=== PATIENT | female | born 1955 | race Caucasian/White ===

== ENCOUNTER 2018-09-15 09:38 | Outpatient (CLI) | payer OTHER, SELFPAY ==
[2018-09-15 13:15] LABS: Hemoglobin A1C 5.5 % (4.5-6.2)
[2018-09-15 13:56] LABS: ALT 26 U/L (12-78); AST 30 U/L (15-37); Albumin 3.3 g/dL (3.4-5.0); Alkaline Phosphatase 89 U/L (46-116); Anion Gap 8.1 mmol/L (3-11); BUN 12 mg/dL (7-18); Bilirubin, Total 0.4 mg/dL (0.2-1.0); CO2 26.9 mmol/L (21.0-32.0); CREATININE 0.55 mg/dL (0.55-1.02); Calcium 9.2 mg/dL (8.5-10.1); Chloride 104 mmol/L (98-107); Cholesterol 242 mg/dL (50-200); Glucose 89 mg/dL (70-100); HDL Cholesterol 119 mg/dL (40-60); LDL CHOLESTEROL 107 mg/dL (<100); Potassium 4.8 mmol/L (3.5-5.1); Sodium 139 mmol/L (136-145); TSH 2.51 uIU/mL (0.358-3.74); Total Protein 6.6 g/dL (6.4-8.2); Triglyceride 68 mg/dL (30-150)
[2018-09-15 14:14] LABS: FREE T4 1.08 ng/dL (0.76-1.46)
== END 2018-09-15 09:58 ==
PROVIDERS: PCP Emergency Medicine; Visit Provider Nurse Practitioner Family
DX: E03.9 Hypothyroidism, unspecified (principal); E78.5 Hyperlipidemia, unspecified
CPT/HCPCS: 36415; 80053; 80061; 83721; 83036; 84439; 84443

== ENCOUNTER 2018-09-17 00:26 | Outpatient (CLI) | payer OTHER, SELFPAY ==
--- NOTE | 2018-09-17 15:00 | DI.MAMMO_ITS ---
SYMPTOM/DIAGNOSIS: SCREENING MAMMOGRAMS: Mammograms were interpreted according to the usual protocol including computer analysis with CAD system, tomosynthesis and C view imaging. The breasts are of moderate density with fairly symmetrical distribution of fibroglandular tissue. No dominant mass or clumped microcalcification is identified in either breast. The current examination is compared with previous examinations including 04/2017 and there has been no gross interval change in appearance in comparison with the previous studies. CONCLUSION: No specific evidence of malignancy at this time. Routine screening examinations are suggested at yearly intervals in this age group according to the ACS/ACR guidelines. Category 1. Breast density, category B. MQSA ASSESSMENT OF FINDINGS: Negative. Category 1. Patient will receive a letter notifying them of these results. BI-RADS category B. There are scattered areas of fibroglandular density.
== END 2018-09-17 00:46 ==
PROVIDERS: PCP Emergency Medicine; Visit Provider Nurse Practitioner Family
DX: Z12.31 Encounter for screening mammogram for malignant neoplasm of breast (principal)
CPT/HCPCS: 77063; 77067